=== PATIENT | female | born 1980 | race Caucasian/White ===

== ENCOUNTER 2018-08-27 14:28 | Emergency (ER) | payer OTHER ==
[~2018-08-27] VITALS: Ht 160 cm; Wt 90.9 kg
[2018-08-27 14:53] VITALS: TEMP 98.6
[2018-08-27] MEDS ORDERED: ULTRAM 50MG TAB50 MG PO (16:11)
[2018-08-27 16:22] VITALS: BP 128/68; PULSE 86
== END 2018-08-27 16:23 | disposition home or self-care (01) ==
LOC: COL.ER 14:28
DX: S16.1XXA Strain of muscle, fascia and tendon at neck level, initial encounter (principal); S60.222A Contusion of left hand, initial encounter; F17.210 Nicotine dependence, cigarettes, uncomplicated; Y04.8XXA Assault by other bodily force, initial encounter; Y92.59 Other trade areas as the place of occurrence of the external cause

== ENCOUNTER 2018-09-21 13:15 | Outpatient (RCR) | payer OTHER ==
[~2018-09-21 13:15] MED LIST: ULTRAM 50MG TAB50 MG PO
== END 2018-12-20 | disposition home or self-care (01) ==
LOC: WSOH
DX: S16.1XXA Strain of muscle, fascia and tendon at neck level, initial encounter (principal); M79.642 Pain in left hand; M54.5 Low back pain; R51 Headache; Y04.2XXA Assault by strike against or bumped into by another person, initial encounter; Y93.F9 Activity, other caregiving; Y92.129 Unspecified place in nursing home as the place of occurrence of the external cause; Y99.0 Civilian activity done for income or pay; F17.210 Nicotine dependence, cigarettes, uncomplicated; Z79.899 Other long term (current) drug therapy

== ENCOUNTER 2018-11-14 08:45 | Outpatient (RCR) | payer OTHER | END 2018-12-15 09:51 | disposition home or self-care (01) | LOC: WSPT 08:45 | DX: S19.9XXD Unspecified injury of neck, subsequent encounter (principal); S39.92XD Unspecified injury of lower back, subsequent encounter; S69.92XD Unspecified injury of left wrist, hand and finger(s), subsequent encounter; Y04.2XXD Assault by strike against or bumped into by another person, subsequent encounter | CPT/HCPCS: G0283-GP ==